=== PATIENT | female | born 1960 | race Caucasian/White ===

== ENCOUNTER 2020-02-11 09:36 | Outpatient (CLI) | payer OTHER, SELFPAY ==
--- NOTE | 2020-02-11 09:55 | DI.RAD_ITS ---
EXAM: XR CHEST 2V PA LATERAL CLINICAL HISTORY: DYSPNEA AND COUGH, H/O BREAST CA, C50.412 TECHNIQUE: 2D digital imaging was performed. COMPARISON: No exams were available for comparison FINDINGS: MEDIASTINUM: Normal. HEART: Normal. PULMONARY VASCULATURE: Normal. LUNGS: There is a round density in the left suprahilar region. While this may represent a pulmonary vessel, a nodule cannot be excluded. PLEURAL SPACE: No pleural effusion or pneumothorax. BONE:Normal. OTHER FINDINGS:Normal. IMPRESSION: Nodular density in the left suprahilar region. CT scan of the chest is recommended for further evalu ation. DATA REPOSITORY: RADIATION DOSE DELIVERED:
== END 2020-02-11 09:56 ==
PROVIDERS: PCP Family Medicine; Visit Provider Radiology Radiation Oncology
DX: R06.00 Dyspnea, unspecified (principal); R05 Cough; Z85.3 Personal history of malignant neoplasm of breast; R91.8 Other nonspecific abnormal finding of lung field
CPT/HCPCS: 71046

== ENCOUNTER 2020-02-19 02:34 | Outpatient (CLI) | payer OTHER, SELFPAY ==
--- NOTE | 2020-02-19 | DI.CT_ITS ---
EXAM: CT CHEST W CLINICAL HISTORY: LUNG NODULE,R91.1,BREAST CA,C50.412,PROGRESSIVE DYSPNEA,F/U ABNL CHEST XR TECHNIQUE: Imaging Protocol: Axial computed tomography images with coronal and sagittal reformatted images were created and reviewed CONTRAST MATERIAL: Intravenous: Omnipaque 350 Contrast volume:structured data in ml. COMPARISON: CR XR CHEST 2V PA LATERAL from 02/11/2020 FINDINGS: Tracheobronchial tree: Patent. No bronchiectasis Mediastinum and Micki: No dominant adenopathy or fluid collection. Pulmonary parenchyma: No consolidation or dominant measurable mass. Minimal increased interstitial ma rkings. Minimal patchy density seen anteriorly in the right upper lobe, above the minor fissure. Th is could represent an area of scarring versus small infectious or inflammatory process. Peripherally calcified nodule left lower lobe.. Pleura: No effusion or pneumothorax. Heart: The heart is not dilated. No coronary artery calcifications are seen. Aorta: Thoracic aorta non-dilated. Minimal calcification Upper abdomen: Unremarkable. Lymph nodes: Within normal limits. Bones: Degenerative disc changes in the thoracic spine.. Tubes, Catheters, and Lines: None IMPRESSION: No evidence of mass near the left hilum. The findings on chest x-ray are consistent with a vessel on end. Minimal fibrotic changes. Question of a small infiltrate versus scarring in the anterior righ t upper lobe.. RADIATION DOSE DELIVERED: 440.48mGy.cm Total DLP DATA REPOSITORY: All CT scans at this facility are submitted to the National Radiology Data Registry (NRDR) Dose Index Registry (DIR) with the [employer] ([employer]). RADIATION OPTIMIZATION: All CT scans at this facility use at least one of these dose optimization te chniques: automated exposure control; mA and/or kV adjustment per patient size (includes targeted exa ms where dose is matched to clinical indication); or iterative reconstruction.
[2020-02-19 09:28] LABS: Abs Immature Grans 0.02 k/cumm (0.0-0.09); Absolute Basophil Count 0.03 k/cumm (0.0-0.2); Absolute Eosinophil Count 0.13 k/cumm (0.0-0.7); Absolute Lymphocyte Count 0.42 k/cumm (1.2-3.4); Absolute Neutrophil Count 4.66 k/cumm (1.2-6.7); Basophils % 0.5; HCT 30.5 % (36.0-46.0); Immature Grans % 0.3 %; Lymphocytes % 6.6; Mean Corp. HGB Concentration 32.8 g/dL (32.0-36.0); Mean Corpuscular Hemoglobin 31.2 pg (27.0-33.0); Monocytes % 17.3; Neutrophils % 73.3; Platelet Count 366 x1000/uL (130-400); RBC 3.21 m/cumm (4.00-5.20); RBC Distribution Width 15.7 % (11.7-14.6); White Blood Cell Count 6.36 k/cumm (4.4-10.8)
[2020-02-19 09:33] LABS: CREATININE 1.14 mg/dL (0.55-1.02); Estimated GFR 48.79 (mL/min/1.73m2)
[2020-02-19] MEDS: Omnipaque 350 MG/ML 100 ML BTL IJ (10:00)
[2020-02-19] MEDS: Normal Saline - Diluent 50 ML VIAL IV (10:01)
[2020-02-19] MEDS: Normal Saline Flush 10 ML SYR IVP (10:02)
== END 2020-02-19 02:54 ==
PROVIDERS: PCP Family Medicine; Visit Provider Radiology Radiation Oncology
DX: R91.1 Solitary pulmonary nodule (principal); J98.4 Other disorders of lung; C50.412 Malignant neoplasm of upper-outer quadrant of left female breast; Z13.89 Encounter for screening for other disorder
CPT/HCPCS: 71260; 82565; 85025; J3490